=== PATIENT | male | born 2000 | race African-American/Black ===

== ENCOUNTER 2021-05-03 18:57 | Emergency (ER) | payer SELFPAY ==
[2021-05-03] MEDS ORDERED: Haloperidol Lactate 5 MG/ML VIAL ONE ×2 (21:36→21:42)
[2021-05-03] MEDS ORDERED: Lorazepam 2 MG/ML VIAL ONE ×2 (21:42→22:09)
== END 2021-05-03 19:37 | disposition left against medical advice (07) ==
LOC: EDBD → CSHERS 18:57
DX: Z53.21 Procedure and treatment not carried out due to patient leaving prior to being seen by health care provider (principal)
CPT/HCPCS: J1630; J2060

== ENCOUNTER 2021-05-03 20:58 | Emergency (ER) | payer OTHER ==
[2021-05-03 23:42] LABS: #Monocytes 0.5 10x3/uL (0.0-1.1); %Basophils 0.3 % (0.0-2.0); %Lymphocytes 31.9 % (18.0-47.0); %Monocytes 7.6 % (0.0-10.0); %Neutrophils 59.8 % (40.0-75.0); Hemoglobin 13.9 g/dL (13.5-17.5); Mean Corpuscular HGB CONC 32.6 g/dL (32.0-36.0); Mean Corpuscular Hemoglobin 28.2 pg (27.0-33.0); Mean Corpuscular Volume 86.4 fl (81.2-95.1); Mean Platelet Volume 10.3 fl (7.4-10.4); Platelet Count 312 10x3/uL (150-450); RBC Distribution Width 13.6 % (11.5-14.5); Red Blood Cell (RBC) Count 4.93 10x6/uL (4.32-5.72); White Blood Cell (WBC) Count 6.7 10x3/uL (3.5-10.5)
[2021-05-03 23:55] LABS: ALT (SGPT) 67 U/L (8-55); AST (SGOT) 54 U/L (5-34); Albumin 4.5 g/dL (3.5-5.0); Alkaline Phosphatase 48 U/L (40-110); Anion Gap 17 mmol/L (10-20); BUN (Urea Nitrogen) 12 mg/dL (8.9-20.6); Bilirubin, Total 0.7 mg/dL (0.2-1.2); Calc. Creatinine Clearance 0 mL/min (70-130); Calcium 9.3 mg/dL (7.8-10.44); Carbon Dioxide 21 mmol/L (22-29); Chloride 105 mmol/L (98-107); Globulin 3.4 g/dL (2.4-3.5); Glucose 120 mg/dL (70-105); Potassium 3.7 mmol/L (3.5-5.1); Protein, Total 7.9 g/dL (6.0-8.3); Sodium 139 mmol/L (136-145)
[2021-05-03 23:56] LABS: Acetaminophen Less than 6.0 mcg/mL (10.0-30.0); Alcohol Less than 10 mg/dL (Less than 10); CK (CPK) 1350 U/L (30-200); Magnesium 1.7 mg/dL (1.6-2.6); Salicylate Less than 8.0 mg/dL (15.0-30.0)
[2021-05-04 08:08] LABS: Bilirubin Neg (Negative); Blood, Urine Negative (Negative); Clarity Clear (Clear); Glucose, Urine (Dipstick) Normal (Negative); Ketone, Urine 50 mg/dL (Negative); Leukocyte Negative (Negative); Nitrite Negative (Negative); Protein, Urine (Dipstick) 30 mg/dl (Neg-Trace); Urobilinogen Normal mg/dL (Less than 2)
[2021-05-04 08:21] LABS: Bacteria/HPF None Seen HPF (None Seen); Mucous/LPF 3+ LPF (<2+); RBC/HPF 0-3 HPF (0-3); Squamous Epithelial None Seen HPF (0-3); WBC/HPF None Seen HPF (0-3)
[2021-05-04 10:31] LABS: Amphetamine Not Detected (NotDetected); Barbiturates Screen Not Detected (NotDetected); Benzodiazepine Screen Detected (NotDetected); Cocaine Metabolite Screen Not Detected (NotDetected); Methadone Not Detected (NotDetected); Methamphetamine Not Detected (NotDetected); Opiate Screen Not Detected (NotDetected); Oxycodone Screen Not Detected (NotDetected); Phencyclidine (PCP) Not Detected (NotDetected); THC/Cannabinoid Screen Not Detected (NotDetected); Tricyclic Screen Not Detected (NotDetected)
[2021-05-04 11:01] LABS: SARS-CoV-2 NAA Rapid Test DETECTED (NotDetected)
== END 2021-05-04 13:32 | disposition left against medical advice (07) ==
LOC: CSHERS 20:58 → EDBD 20:58 → CSHERS 05-04 13:32
DX: U07.1 COVID-19 (principal); F30.2 Manic episode, severe with psychotic symptoms; I49.8 Other specified cardiac arrhythmias
CPT/HCPCS: 36415; 36416; 70450; 71045; 80053; 80306; 80307; 81003; 81015; 82550; 83605; 83735; 84443; 84484; 85025; 87040; 87086; 93005; 93010; 96372; U0002